=== PATIENT | female | born 1965 | race Caucasian/White ===

== ENCOUNTER 2017-08-18 05:38 | Day surgery (SDC) | payer BC ==
--- NOTE | 2017-08-18 00:42 | HP ---
HISTORY OF PRESENT ILLNESS: This is a 52-year-old female referred to me by Dr. Jesse Barajas for a col onoscopy for colon cancer screening. The patient is known to have IBS over the years with abdominal cramping, diarrhea. The patient comes in for a colonoscopy basically for colon cancer screening. ALLERGIES: LEVAQUIN. MEDICAL ILLNESSES: 1. IVSD. 2. Hypothyroidism. 3. Asthma. 4. Anxiety. 5. Panic attack. 6. Migraine. 7. Status post hysterectomy. 8. Status post thyroidectomy. PHYSICAL EXAMINATION: VITAL SIGNS: Pulse is 70, blood pressure 130/70. HEENT: Conjunctivae are clear. CARDIOVASCULAR: First and second heart sounds are normal. LUNGS: Clear to auscultation. ABDOMEN: Soft to palpate. No organomegaly. No tenderness. No masses. ADMITTING DIAGNOSIS: A 52-year-old female comes in for a colonoscopy for colon cancer [facility].
[2017-08-18] MEDS ORDERED: Lidocaine 1% PF 5 ML VIAL ONE (08:15)
[2017-08-18] MEDS ORDERED: Propofol 200 MG/20 ML VIAL ONE (08:15)
--- NOTE | 2017-08-18 10:23 | OP ---
DATE OF SURGERY: 08/18/2017 SURGEON: Jordyn Arroyo M.D. OPERATIVE PROCEDURE: Ileocolonoscopy with biopsy. PREOPERATIVE DIAGNOSIS: A 52-year-old female undergoing colonoscopy for colon cancer [facility]. POSTOPERATIVE DIAGNOSES: 1. Occasional sigmoid diverticular disease. 2. Sessile sigmoid polyp. 3. Otherwise, normal ileal colonoscopy. PROCEDURE IN DETAIL: The patient was placed on her left lateral position and was given sedation by Anesthesia Department. A rectal exam was done before the scope was advanced into the rectum. No le sions were felt on rectal exam. A Pentax video colonoscope was introduced into the rectum and advan ana maria all the way into the cecum. The prep was excellent. The mucosa appeared normal throughout the colon. The appendiceal opening, ileocecal valve, and cecum, no pathology seen. The scope advanced to terminal ileum. The ileal mucosa appeared normal. Withdrawal of scope from the cecum, ascending colon, hepatic flexure, transverse colon, splenic flexure, and descending colon, no pathology seen. Random biopsies were obtained in the ascending colon and transverse colon to rule out microscopic colitis. A sessile polyp over the sigmoid colon was removed with biopsy forceps. The sigmoid colon showed occasional diverticula. Rectum showed no lesions. DISCHARGE PLANNING: This is a 52-year-old female who came in for colonoscopy for colon ca ncer screening. She underwent biopsy. DISCHARGE RECOMMENDATIONS: 1. The patient advised to call me if she develops abdominal pain, hematochezia or fever. 2. To come back in the clinic in 2 weeks.
== END 2017-08-18 09:15 | disposition home or self-care (01) ==
LOC: SDC 05:38
PROVIDERS: ATTEND Internal Medicine Gastroenterology
PROC: 0DBN8ZX Excision of Sigmoid Colon, Via Natural or Artificial Opening Endoscopic, Diagnostic (ICD-10-PCS; principal; 2017-08-18)
DX: Z12.11 Encounter for screening for malignant neoplasm of colon (principal); K63.5 Polyp of colon; K52.89 Other specified noninfective gastroenteritis and colitis; K57.30 Diverticulosis of large intestine without perforation or abscess without bleeding; E89.0 Postprocedural hypothyroidism; J45.909 Unspecified asthma, uncomplicated; G43.909 Migraine, unspecified, not intractable, without status migrainosus; Q21.2 Atrioventricular septal defect; F41.0 Panic disorder [episodic paroxysmal anxiety]; Z90.710 Acquired absence of both cervix and uterus
CPT/HCPCS: 88305; J2001; J2704

== ENCOUNTER 2017-11-14 12:52 | Outpatient (CLI) | payer BC ==
[2017-11-14 13:35] LABS: #Basophils 0.1 thou/uL (0.0-0.2); #Eosinphils 0.3 thou/uL (0.0-0.7); #Lymphocytes 1.9 thou/uL (1.20-3.40); #Monocytes 0.3 thou/uL (0.11-0.59); #Neutrophils 5.3 thou/uL (1.40-6.50); %Basophils 1.1 % (0.0-1.0); %Eosinophils 3.5 % (0.0-10.0); %Lymphocytes 24.1 % (21.0-51.0); %Monocytes 4.2 % (0.0-10.0); %Neutrophils 67.2 % (42.0-75.0); Hemoglobin 13.8 g/dL (12.0-16.0); Mean Corpuscular HGB CONC 32.8 g/dL (32.0-36.0); Mean Corpuscular Hemoglobin 32.9 pg (27.0-31.0); Mean Platelet Volume 7.5 fL (7.4-10.4); Platelet Count 302 thou/uL (130-400); RBC Distribution Width 11.7 % (11.5-14.5); White Blood Cell (WBC) Count 7.9 thou/uL (4.8-10.8)
[2017-11-14 13:54] LABS: ALT (SGPT) 29 U/L (8-55); AST (SGOT) 27 U/L (5-34); Albumin 4.6 g/dL (3.5-5.0); Alkaline Phosphatase 83 U/L (40-150); Anion Gap 12 mmol/L (10-20); BUN (Urea Nitrogen) 16 mg/dL (7.0-18.7); Bilirubin, Total 0.3 mg/dL (0.2-1.2); Calc. Creatinine Clearance 0 mL/min (70-130); Calcium 9.9 mg/dL (7.8-10.44); Carbon Dioxide 28 mmol/L (22-29); Chloride 104 mmol/L (98-107); Estimated GFR-MDRD 57; Globulin 2.7 g/dL (2.4-3.5); Glucose 92 mg/dL (70-105); Potassium 4.9 mmol/L (3.5-5.1); Protein, Total 7.3 g/dL (6.0-8.3); Sodium 139 mmol/L (136-145)
== END 2017-11-14 12:53 | disposition home or self-care (01) ==
LOC: LABBT 12:52
PROVIDERS: ATTEND Surgery
DX: Z01.812 Encounter for preprocedural laboratory examination (principal); K80.20 Calculus of gallbladder without cholecystitis without obstruction
CPT/HCPCS: 80053; 85025

== ENCOUNTER 2017-11-17 09:10 | Day surgery (SDC) | payer BC ==
[2017-11-14 12:55] VITALS: BMI 30.7
[2017-11-17] MEDS ORDERED: CEFAZOLIN/Water 2 GM/20 ML SYRINGE ONE (10:08)
[2017-11-17] MEDS ORDERED: Scopolamine 1.5 mg/72 hour Patch ONE (10:17)
[2017-11-17] MEDS ORDERED: Iothalamate Meglumine 60% 50 ML VIAL FS ONE (11:32)
[2017-11-17] MEDS ORDERED: Bupivacaine PF 0.5% 30 ML VIAL ONE (11:32)
[2017-11-17] MEDS ORDERED: Lidocaine 1% w/Epinephrine 1:200K 30 ML VIAL ONE (11:32)
[2017-11-17] MEDS ORDERED: Fentanyl 100 MCG/2 ML VIAL ONE ×2 (11:38→12:53)
[2017-11-17] MEDS ORDERED: diphenhydrAMINE 50 MG/ML VIAL ONE (13:09)
[2017-11-17] MEDS ORDERED: HYDROcodone/Acetaminophen 5/325 mg Tablet ONE (13:55)
[2017-11-17] MEDS ORDERED: Ketorolac Tromethamine 30 MG/ML VIAL ONE (14:10)
[2017-11-17] MEDS ORDERED: Propofol 200 MG/20 ML VIAL ONE (14:10)
[2017-11-17] MEDS ORDERED: Dexamethasone 20 MG/5 ML VIAL ONE (14:10)
[2017-11-17] MEDS ORDERED: Glycopyrrolate 0.2 MG/ML 5 ML SYRINGE ONE (14:10)
[2017-11-17] MEDS ORDERED: Lidocaine 1% PF 5 ML VIAL ONE (14:10)
[2017-11-17] MEDS ORDERED: Ondansetron HCl/PF 4 MG/2 ML Vial ONE (14:10)
--- NOTE | 2017-11-17 16:11 | PDOC.OP ---
Operative Note - Operative Note Operative Note: PROCEDURE: Laparoscopic cholecystectomy SURGEON: Rod Alicia M.D. DATE OF PROCEDURE: 11/17/2017 PREOPERATIVE DIAGNOSIS: Cholelithiasis and cholecystitis POSTOPERATIVE DIAGNOSIS: Cholelithiasis and cholecystitis HISTORY: Patient with intermittent postprandial right upper quadrant pain for some time. She was found to have stones on ultrasound. LFTs and bile duct caliber were normal. Laparoscopic cholecystectomy was recommended for symptomatic relief. FINDINGS: Distended but otherwise grossly normal-appearing gallbladder with omental adhesions suggesting some element of chronic inflammation. PROCEDURE IN DETAIL: After informed consent was obtained and appropriate preoperative antibiotics were administered, the patient was taken to the operating room and placed in the supine position and general endotracheal anesthesia was administered. The stomach was decompressed with an OG tube and the abdomen was prepped and draped in standard sterile fashion. Local anesthesia was infused to the skin and subcutaneous tissues at the umbilical level. A transverse skin incision was made. The fascia was elevated and a Veress needle was placed into the abdominal cavity without difficulty. Opening pressure was less than 5 and carbon dioxide gas easily insufflated to an intra- abdominal pressure of 15, which the patient tolerated well. The Veress needle was withdrawn and a [place] port advanced under direct vision. The abdominal cavity was carefully examined. There was no evidence of Veress needle or of trocar injury. Local anesthesia was infused to the skin and subcutaneous tissues at the epigastric, right upper quadrant, and right lateral abdominal sites and trocars were placed under direct vision of the laparoscope. The fundus of the gallbladder was grasped and retracted superiorly. The infundibulum was grasped and retracted laterally. The serosa was stripped inferiorly at the level of the neck of the gallbladder exposing the cystic duct and artery which were traced clearly to their insertion in the gallbladder. Critical view of safety was obtained and the cystic duct and artery were clipped and divided between clips. The gallbladder was then dissected free of the gallbladder bed using hook electrocautery. Prior to complete removal of the gallbladder from the gallbladder bed, the area of the cystic duct and artery stumps was examined. The clips were in good position completely across these structures and there was no bleeding and no leakage of bile. The gallbladder was then placed into an EndoCatch bag and drawn out through the epigastric incision. The epigastric trocar was replaced and the operative site easily irrigated to clear. There was no significant bleeding or spillage of bile. The epigastric trocar was removed and the fascia closed under direct laparoscopic vision with a 0 Vicryl suture on a GraNee needle in a figure-of- eight manner with excellent technical result. The right upper quadrant and right lateral abdominal trocars were removed and hemostasis verified. Carbon dioxide gas was allowed to desufflate through the umbilical trocar which was then removed. The skin incisions were closed with 4-0 subcuticular Monocryl sutures and Dermabond dressings were placed. The patient was extubated and taken to the recovery room in good condition. There were no complications. ESTIMATED BLOOD LOSS: Minimal. SPECIMEN : Gallbladder and contents.
== END 2017-11-17 14:33 | disposition home or self-care (01) ==
LOC: SDC 09:10
PROVIDERS: ATTEND Surgery
PROC: 0FT44ZZ Resection of Gallbladder, Percutaneous Endoscopic Approach (ICD-10-PCS; principal; 2017-11-17)
DX: K81.1 Chronic cholecystitis (principal); K66.0 Peritoneal adhesions (postprocedural) (postinfection); J45.909 Unspecified asthma, uncomplicated; E89.0 Postprocedural hypothyroidism; G43.909 Migraine, unspecified, not intractable, without status migrainosus; F41.0 Panic disorder [episodic paroxysmal anxiety]; F41.9 Anxiety disorder, unspecified; Z79.818 Long term (current) use of other agents affecting estrogen receptors and estrogen levels; Z79.899 Other long term (current) drug therapy; Z90.710 Acquired absence of both cervix and uterus; Z98.890 Other specified postprocedural states
CPT/HCPCS: 88304; 96374; 96375; J1100; J1200; J1885; J2001; J2405; J2704; J3010; Q9961; S0020

== ENCOUNTER 2019-05-24 14:46 | Outpatient (CLI) | payer BC ==
--- NOTE | 2019-05-28 06:47 | MMO ---
Bilateral MAMMO Bilat Screen [facility]. CLINICAL HISTORY: Patient is 53 years old and is seen for screening. The patient has no family history of breast cancer. The patient has no personal history of cancer. VIEWS: The views performed were: bilateral craniocaudal with tomosynthesis and bilateral mediolateral oblique with tomosynthesis. FILMS COMPARED: The present examination has been compared to a prior imaging study performed at [facility] on 03/19/2015. MAMMOGRAM FINDINGS: There are scattered fibroglandular densities. There are no suspicious masses, suspicious calcifications, or new areas of architectural distortion. IMPRESSION: THERE IS NO MAMMOGRAPHIC EVIDENCE OF MALIGNANCY. A ROUTINE FOLLOW-UP MAMMOGRAM IN 1 YEAR IS RECOMMENDED. THE RESULTS OF THIS EXAM WERE SENT TO THE PATIENT. ACR BI-RADS Category 1 - Negative MAMMOGRAPHY NOTE: 1. A negative mammogram report should not delay a biopsy if a dominant of clinically suspicious mass is present. 2. Approximately 10% to 15% of breast cancers are not detected by mammography. 3. Adenosis and dense breasts may obscure an underlying neoplasm. Reported by: KAELA HIGUERA MD Electonically Signed: [id number]
== END 2019-05-24 14:47 | disposition home or self-care (01) ==
LOC: BICMAMMO 14:46
PROVIDERS: ATTEND Family Medicine
DX: Z12.31 Encounter for screening mammogram for malignant neoplasm of breast (principal)
CPT/HCPCS: 77063; 77067

== ENCOUNTER 2021-01-15 09:26 | Outpatient (CLI) | payer BC | END 2021-01-15 09:27 | disposition home or self-care (01) | LOC: BICRAD 09:26 | PROVIDERS: ATTEND Physician Assistant | DX: U07.1 COVID-19 (principal); J12.82 Pneumonia due to coronavirus disease 2019 | CPT/HCPCS: 71046 ==

== ENCOUNTER 2021-02-19 07:42 | Outpatient (CLI) | payer BC | END 2021-02-19 07:43 | disposition home or self-care (01) | LOC: BICMAMMO 07:42 | PROVIDERS: ATTEND Family Medicine | DX: Z12.31 Encounter for screening mammogram for malignant neoplasm of breast (principal) | CPT/HCPCS: 77063; 77067 ==

== ENCOUNTER 2022-02-25 08:51 | Outpatient (CLI) | payer BC | END 2022-02-25 08:52 | disposition home or self-care (01) | LOC: ULT 08:51 | PROVIDERS: ATTEND Physician Assistant | DX: M25.561 Pain in right knee (principal); M79.661 Pain in right lower leg ==

== ENCOUNTER 2022-08-01 09:36 | Outpatient (CLI) | payer BC | END 2022-08-01 09:37 | disposition home or self-care (01) | LOC: BICMAMMO 09:36 | PROVIDERS: ATTEND Family Medicine | DX: N64.89 Other specified disorders of breast (principal) | CPT/HCPCS: 77066; G0279 ==